=== PATIENT | female | born 1985 | race Caucasian/White ===

== ENCOUNTER 2019-04-11 05:39 | Outpatient (CLI) | payer OTHER ==
[~2019-04-11] VITALS: Ht 160 cm; Wt 50.5 kg
[~2019-04-11 05:39] MED LIST: CEPH-38 PO; HYDR-91 PO; IBP800T PO; PREN1TAB39 PO
[2019-04-11] MEDS ORDERED: FLUO40CA12 PO (09:45)
[2019-04-13] MEDS ORDERED: IBUP-1780 PO (12:41)
== END 2019-04-11 09:53 | disposition home or self-care (01) ==
LOC: PREOP 05:39
PROVIDERS: ATTEND Obstetrics & Gynecology
DX: Z01.818 Encounter for other preprocedural examination (principal)

== ENCOUNTER → 2020-07-25 | Outpatient (CLI) | payer MEDICAID ==
[~2020-07-25] MED LIST changes: +FLUO40CA12 PO; +IBUP-1780 PO
== END ==
LOC: LABNPT 12:42
PROVIDERS: ATTEND Obstetrics & Gynecology
DX: O14.93 Unspecified pre-eclampsia, third trimester (principal)
CPT/HCPCS: 82570; 84156

== ENCOUNTER 2020-08-22 11:19 | Inpatient (IN) | payer BC, MEDICAID ==
[~2020-08-22] VITALS: Ht 160 cm; Wt 65.0 kg
[2020-08-22] VITALS (42 sets, daily range): BP systolic 87–145; BP diastolic 55–86
[2020-08-22] MEDS ORDERED: OXYTOCIN PRE-MIX DRIP 500 ML IV SCH ×2 (12:00→15:15)
[2020-08-22] MEDS ORDERED: AMPICILLIN FOR IV USE 2,000 MG in WATER (STERILE) FOR INJECTION 14.8 ML IV ONE (12:00)
[2020-08-22] MEDS: D5 LR IV SOLUTION 1,000 ML IV SCH ×2 (12:15→19:13)
--- NOTE | 2020-08-22 12:21 | History & Physical ---
History and Physical Date Seen by Provider: August 22, 2020 Time Seen by Provider: 12:20 This patient is a 35-year-old 3 para 2 white female currently at 37-6/7 weeks gestation. She presented with complaint of rupture membranes about 1/2- hour before presentation at 11 AM. She denies bleeding. She reports clear fluid. Her history is significant for rapid labors and a GBS positive culture after 35 weeks gestation with this . Allergies are to omeprazole Medications are vitamins Medical social and surgical history is all per the antepartum record HEENT exam is normal Neck is supple no lymphadenopathy no thyromegaly Abdomen is gravid soft nontender nondistended Extremities show no clubbing cyanosis. There is no Homans' sign. Pelvic exam per the labor delivery nurse showed the cervix to 2-1/2 cm dilated 50% effaced gross rupture membranes vertex presentation Assessment and plan at 37+ week gestation with PROM. Patient will be started on prophylactic ampicillin and we anticipate vaginal delivery 37 weeks with PROM Allergies and Home Medications Allergies Coded Allergies: omeprazole (Unverified Adverse Reaction, Mild, Nausea and vomitting, 03/17/07) Home Medications Fluoxetine HCl Unknown Strength Capsule, 1 TAB PO DAILY, (Reported) Ibuprofen 800 Mg Tablet, 800 MG PO Q6H PRN for PAIN Prescribed by: CARSON PETERS on 04/13/19 1241 Patient Home Medication List Home Medication List Reviewed: Yes CARSON LAWSON MD August 22, 2020 12:21
[2020-08-22 12:29] LABS: BASOPHILS % (AUTO) 0 % (0-10); EOSINOPHILS # (AUTO) 0.1 10^3/uL (0.0-0.3); EOSINOPHILS % (AUTO) 1 % (0-10); HEMATOCRIT 34 % (35-52); HEMOGLOBIN 10.9 g/dL (11.5-16.0); LYMPHOCYTES # (AUTO) 1.7 10^3/uL (1.0-4.0); LYMPHOCYTES % (AUTO) 13 % (12-44); MEAN CORPUSCULAR HEMOGLOBIN 27 pg (25-34); MEAN CORPUSCULAR HGB CONC 32 g/dL (32-36); MEAN CORPUSCULAR VOLUME 85 fL (80-99); MEAN PLATELET VOLUME 11.2 fL (9.0-12.2); MONOCYTES # (AUTO) 0.6 10^3/uL (0.0-1.0); MONOCYTES % (AUTO) 5 % (0-12); NEUTROPHILS # (AUTO) 10.8 10^3/uL (1.8-7.8); NEUTROPHILS % (AUTO) 81 % (42-75); PLATELET COUNT 320 10^3/uL (130-400); WHITE BLOOD COUNT 13.4 10^3/uL (4.3-11.0)
[2020-08-22] MEDS ORDERED: fentaNYL INJ 100 MCG/2 ML AMP ONE (13:30)
[2020-08-22] MEDS ORDERED: BUPIVACAINE 0.25% 30 ML (SENSORCAINE) VIAL ONE (13:30)
[2020-08-22] MEDS ORDERED: fentaNYL 2 mcg/ml BUPIVA 0.125 100 ML ONE (13:32)
[2020-08-22] MEDS: EPIDURAL (fentaNYL 2 MCG/ML BUPIVA 0.125%)100 ML BAG EPI PRN (14:00)
[2020-08-22] MEDS ORDERED: NALOXONE 0.4 MG/ML 1 ML (NARCAN) VIAL IV PRN (14:15)
[2020-08-22] MEDS ORDERED: diphenhydrAMINE 50 MG/ML INJ (BENADRYL) IV PRN (14:15)
[2020-08-22] MEDS ORDERED: LACTATED RINGERS 1,000 ML IV SCH (14:15)
[2020-08-22] MEDS ORDERED: ONDANSETRON 4 MG/2 ML (SDV) Z0FRAN IV PRN (14:15)
[2020-08-22] MEDS: AMPICILLIN FOR IV USE 1,000 MG in WATER (STERILE) FOR INJECTION 7.4 ML IV SCH ×2 (15:57→20:05)
[2020-08-23] VITALS (24 sets, daily range): BP systolic 113–146; BP diastolic 57–81
[2020-08-23] MEDS: EPIDURAL (fentaNYL 2 MCG/ML BUPIVA 0.125%)100 ML BAG EPI PRN
[2020-08-23] MEDS: AMPICILLIN FOR IV USE 1,000 MG in WATER (STERILE) FOR INJECTION 7.4 ML IV SCH (00:02)
[2020-08-23] MEDS: D5 LR IV SOLUTION 1,000 ML IV SCH (02:23)
[2020-08-23] MEDS: KETOROLAC 30 MG/ML VIAL IVP SCH ×2 (04:08→19:51)
--- NOTE | 2020-08-23 04:10 | OPERATIVE REPORT ---
DATE OF SERVICE: 08/23/2020 DELIVERY NOTE The patient delivered by term spontaneous vaginal delivery, a viable female infant with Apgars of 7 and 9 at 1 and 5 minutes respectively, weight of 6 pounds 6 ounces, time of 0242 and a cord blood pH is pending. The was delivered over midline episiotomy under epidural analgesia. The was bulb suctioned on delivery of the head and again on completion of delivery. The umbilical cord when pulseless was doubly clamped, the father cut the cord, the baby was passed to mom's abdomen. The episiotomy was performed with the baby pushed down onto the perineal body and mom unable to expel the baby through the perineal body. She requested episiotomy, which was performed, and the delivery was accomplished fairly promptly. The infant was bulb suctioned on delivery of the head again on completion of delivery. After the father cut the cord, the baby was passed to mom's abdomen. Cord bloods were obtained. The placenta delivered spontaneously Oliveira. It was normal with a 3-vessel cord. The cervix, vagina, rectum, and perineum were examined and found intact, except for the midline episiotomy, which was repaired with a single suture of 3-0 Vicryl in the usual manner without difficulty to good hemostasis. Sponge and needle counts were correct on completion of delivery and the repair. Blood loss was around 300 mL. The patient tolerated the delivery and the repair well and remained in the LDR for recovery. The baby remained with the mom. Job ID: [id number] DocumentID: [id number] Dictated Date: 08/23/2020 03:01:06 Commercial Property Manager Date: 08/23/2020 04:09:40 Dictated By: CARSON LAWSON MD
[2020-08-23] MEDS ORDERED: OXYTOCIN PRE-MIX DRIP 500 ML IV SCH (04:15)
[2020-08-23] MEDS ORDERED: fentaNYL INJ 100 MCG/2 ML AMP IVP PRN (04:15)
[2020-08-23] MEDS ORDERED: TETANUS,DIPTH,PERTUSS P/F (BOOSTRIX) 0.5 ML VIAL IM ONE (04:15)
[2020-08-23] MEDS ORDERED: MEASLES,MUMPS,RUBELLA 1 EA INJ SC ONE (04:15)
[2020-08-23] MEDS ORDERED: ONDANSETRON 4 MG/2 ML (SDV) Z0FRAN IVP PRN (04:15)
[2020-08-23] MEDS: BENZOCAINE/MENTHOL (DERMOPLAST) 56 ML CAN TP PRN (05:14)
[2020-08-23] MEDS: IBUPROFEN 800 MG (MOTRIN) TAB PO SCH ×3 (10:20→22:34)
[2020-08-23] MEDS: DOCUSATE SODIUM 100 MG (COLACE) CAP PO SCH ×2 (10:21→20:48)
--- NOTE | 2020-08-23 12:29 | Progress Note ---
Standard Progress Note Progress Notes/Assess & Plan Date Seen by a Provider: August 23, 2020 Time Seen by a Provider: 12:28 Progress/Assessment & Plan This patient is without complaint. She is ambulating, voiding, tolerating oral intake well and has good pain control. Vital Signs 08/23/20 10:19 Temp 36.1 Pulse 81 Resp 18 B/P (MAP) 119/69 (86) Pulse Ox 98 O2 Delivery Room Air Vital signs are stable. Patient is afebrile. Fundus is firm below the umbilicus and nontender. Extremities show no clubbing or cyanosis. There is no Homans' sign. Assessment and plan Status post term spontaneous vaginal delivery in the early hours of this mo rning. Patient is doing well and will have routine convalescent care CARSON LAWSON MD August 23, 2020 12:29
[2020-08-23] MEDS ORDERED: IBUP-1780 PO (12:31)
[2020-08-23] MEDS ORDERED: OXYC1TAB87 PO (12:31)
[2020-08-23] MEDS ORDERED: DCS100C PO (12:31)
--- NOTE | 2020-08-23 12:31 | Discharge Inst-Surgical ---
Discharge Inst-Surgical Depart Medication/Instructions New, Converted or Re-Newed RX: RX on Chart Consults/Follow Up Patient Instructions: As directed Orders & Referrals Follow Up Appt: Call to make follow up appt. for patient in 4 weeks. Activity Per routine post vaginal delivery instructions. Please call in RX to patient pharmacy. Diet as tolerated Patient may shower or tub bathe as desired. Activity Activity as Tolerated: No Diet Discharge Diet: No Restrictions CARSON LAWSON MD August 23, 2020 12:31
--- NOTE | 2020-08-23 13:13 | Anesthesia-Regional Post-Op ---
Regional Patient Condition Mental Status: Alert, Oriented x3 Circulation: Same as Pre-Op Headache: Absent Sensation: Full Recovery Motor Block: Absent Post Op Complications Complications None Follow Up Care/Instructions Patient Instructions None needed. Anesthesia/Patient Condition Patient is doing well, no complaints, stable vital signs, no apparent adverse anesthesia problems. No complications reported per nursing. NICK GONSALVES CRNA August 23, 2020 13:13
[2020-08-23] MEDS: oxyCODONE/APAP 10/325MG (PERCOCET 10) TABLET PO PRN ×2 (17:18→20:48)
[2020-08-24 02:13] VITALS: BP 98/58
[2020-08-24] MEDS: IBUPROFEN 800 MG (MOTRIN) TAB PO SCH ×3 (02:13→15:43)
[2020-08-24] MEDS: oxyCODONE/APAP 10/325MG (PERCOCET 10) TABLET PO PRN (05:14)
[2020-08-24 09:24] VITALS: BP 108/69
[2020-08-24] MEDS: DOCUSATE SODIUM 100 MG (COLACE) CAP PO SCH (09:25)
[2020-08-24] MEDS: BENZOCAINE/MENTHOL (DERMOPLAST) 56 ML CAN TP PRN (12:30)
[2020-08-24 15:45] VITALS: BP 114/63
== END 2020-08-24 18:00 | disposition home or self-care (01) | DRG 807 ==
LOC: WSo 11:19 → LDRP 11:21 → WSo 12:00 → LDRP 08-23 05:20
PROVIDERS: ADMIT Obstetrics & Gynecology; ATTEND Obstetrics & Gynecology
PROC: 10E0XZZ Delivery of Products of Conception, External Approach (ICD-10-PCS; principal; 2020-08-23)
PROC: 0W8NXZZ Division of Female Perineum, External Approach (ICD-10-PCS; 2020-08-23)
DX: O42.92 Full-term premature rupture of membranes, unspecified as to length of time between rupture and onset of labor (principal); Z37.0 Single live birth; Z3A.37 37 weeks gestation of pregnancy; O99.824 Streptococcus B carrier state complicating childbirth
CPT/HCPCS: 36415; 85025

== ENCOUNTER 2020-09-16 13:38 | Emergency (ER) | payer BC, MEDICAID ==
[~2020-09-16] VITALS: Ht 160 cm; Wt 57.0 kg
[~2020-09-16 13:38] MED LIST changes: +DCS100C PO; +OXYC1TAB87 PO
[2020-09-16] MEDS ORDERED: LACTATED RINGERS 1,000 ML IV ONE (14:15)
[2020-09-16 14:20] LABS: BASOPHILS # (AUTO) 0.1 10^3/uL (0.0-0.1); BASOPHILS % (AUTO) 1 % (0-10); EOSINOPHILS # (AUTO) 0.2 10^3/uL (0.0-0.3); EOSINOPHILS % (AUTO) 3 % (0-10); HEMATOCRIT 30 % (35-52); HEMOGLOBIN 9.2 g/dL (11.5-16.0); LYMPHOCYTES # (AUTO) 3.3 10^3/uL (1.0-4.0); LYMPHOCYTES % (AUTO) 46 % (12-44); MEAN CORPUSCULAR HEMOGLOBIN 26 pg (25-34); MEAN CORPUSCULAR HGB CONC 31 g/dL (32-36); MEAN CORPUSCULAR VOLUME 85 fL (80-99); MEAN PLATELET VOLUME 9.3 fL (9.0-12.2); MONOCYTES # (AUTO) 0.5 10^3/uL (0.0-1.0); MONOCYTES % (AUTO) 7 % (0-12); NEUTROPHILS # (AUTO) 3.1 10^3/uL (1.8-7.8); NEUTROPHILS % (AUTO) 43 % (42-75); PLATELET COUNT 477 10^3/uL (130-400); WHITE BLOOD COUNT 7.1 10^3/uL (4.3-11.0)
[2020-09-16 14:29] LABS: ALBUMIN 4.2 GM/DL (3.2-4.5); CHLORIDE 99 MMOL/L (98-107); POTASSIUM 2.9 MMOL/L (3.6-5.0); SODIUM 137 MMOL/L (135-145)
[2020-09-16 14:31] LABS: GLUCOSE 105 MG/DL (70-105)
[2020-09-16 14:32] LABS: TOTAL PROTEIN 7.6 GM/DL (6.4-8.2)
[2020-09-16 14:33] LABS: BILIRUBIN,TOTAL 0.3 MG/DL (0.1-1.0); CARBON DIOXIDE 23 MMOL/L (21-32)
[2020-09-16 14:35] LABS: ALKALINE PHOSPHATASE 54 U/L (40-136); CREATININE SERUM 1.02 MG/DL (0.60-1.30); GFR ESTIMATED > 60
[2020-09-16 14:36] LABS: BUN/CREATININE RATIO 7
[2020-09-16 14:38] LABS: ALANINE AMINOTRANSFERASE 13 U/L (0-55)
--- NOTE | 2020-09-16 15:04 | ED GU-Female ---
General Chief Complaint: Female Reproductive Stated Complaint: VAGINAL 3 WKS AGO/HEAVY BLEEDING Nursing Triage Note: PT PRESENTS TO ED VIA POV FROM HOME WITH COMPLAINTS OF VAGINAL BLEEDING STARTING 09/15 AND INCREASING THIS AM. PT REPORTS SHE IS SOAKING THROUGH MULTIPLE PADS AT A TIME AND REPORTS BLOOD CLOTS. PT REPORTS A NORMAL VAGINAL DELIVERY ON 08/23. Nursing Sepsis Screen: No Definite Risk Source: patient, spouse Exam Limitations: no limitations History of Present Illness Date Seen by Provider: Sep 16, 2020 Time Seen by Provider: 14:00 Initial Comments Patient to the ER by private conveyance with chief complaint that she is 3 weeks with her daughter. She is a G6, P4 with copious vaginal bleeding starting since last night. She is passed large blood clots greater than the size of a chicken egg. She is having dizziness near syncope and lightheadedness whenever she walks. Nursing reports that her heart rate was 140 on arrival but improved as they laid her down. She denies a history of bleeding or easy bruising or bleeding with her gums on brushing or dental work. No history of family bleeding disorders. She had preeclampsia with her previous . Last vaginal intercourse was 4 weeks ago. Allergies and Home Medications Allergies Coded Allergies: Penicillins (Verified Adverse Reaction, Unknown, Nausea, 09/16/20) Home Medications Docusate Sodium 100 Mg Capsule, 100 MG PO BID Prescribed by: CARSON PETERS on 08/23/20 1231 Ibuprofen 800 Mg Tablet, 800 MG PO Q6H PRN for PAIN Prescribed by: CARSON PETERS on 08/23/20 1231 Oxycodone HCl/Acetaminophen 1 Each Tablet, 1 TAB PO Q4H Prescribed by: CARSON PETERS on 08/23/20 1231 Patient Home Medication List Home Medication List Reviewed: Yes Review of Systems Review of Systems Constitutional: see HPI; No chills, No diaphoresis; dizziness, weakness EENTM: No ear discharge, No ear pain, No blurred vision Respiratory: No cough, No short of breath Cardiovascular: No chest pain, No palpitations; syncope (near) Gastrointestinal: No abdominal pain, No constipation, No nausea Genitourinary: denies burning, denies discharge Musculoskeletal: No back pain, No joint pain All Other Systemes Reviewed Negative Unless Noted: Yes Past Poqunma-Zqarle-Pdvskc Hx Patient Social History Alcohol Use: Denies Use Smoking Status: Never a Smoker Type Used: Cigarettes 2nd Hand Smoke Exposure: Yes Recent Infectious Disease Expo: No Recent Hopitalizations: No Seasonal Allergies Seasonal Allergies: No Past Medical History Surgeries: Yes (cyst x2 removed under chin, lymph node removed) Adenoidectomy, Tonsillectomy Respiratory: No Cardiac: No Neurological: No Reproductive Disorders: No Genitourinary: No Gastrointestinal: No Musculoskeletal: No Endocrine: No HEENT: No Cancer: No Psychosocial: Yes Anxiety, Depression Integumentary: No Blood Disorders: No Physical Exam Vital Signs Vital Signs - First Documented 09/16/20 13:55 Temp 36.6 Pulse 140 Resp 20 B/P (MAP) 132/89 (103) Pulse Ox 99 Capillary Refill : Less Than 3 Seconds Height, Weight, BMI Height: 5'3.00" Weight: 120lbs. 0.0oz. [id number]; 22.00 BMI Method: General Appearance: WD/WN, no apparent distress HEENT: PERRL/EOMI, pharynx normal Neck: full range of motion, normal inspection Cardiovascular: normal peripheral pulses, regular rate, rhythm Respiratory: lungs clear, normal breath sounds, no respiratory distress, no accessory muscle use Gastrointestinal: normal bowel sounds, non tender, soft Pelvic: normal external exam, vaginal bleeding (Blood clots in the vaginal vault. Cervical os is parous, open approximately three quarters of a centimeter with blood clot but no membranes seen. No active bleeding. No lacerations in the vagina.) Extremities: non-tender, normal inspection, no pedal edema Neurologic/Psychiatric: alert, normal mood/affect, oriented x 3 Skin: normal color, warm/dry Progress/Results/Core Measures Suspected Sepsis Recent Fever Within 48 Hours: No Infection Criteria Present: None New/Unexplained Altered Menta: No Sepsis Screen: No Definite Risk SIRS Temperature: Pulse: 140 Respiratory Rate: 20 Laboratory Tests 09/16/20 14:12: White Blood Count 7.1 Blood Pressure 132 /89 Mean: 103 Laboratory Tests 09/16/20 14:12: Creatinine 1.02, Platelet Count 477H, Total Bilirubin 0.3 09/16/20 15:12: INR Comment 1.1 Results/Orders Lab Results Laboratory Tests Test 09/16/20 14:12 09/16/20 15:12 09/16/20 15:30 Range/Units White Blood Count 7.1 4.3-11.0 10^3/uL Red Blood Count 3.54 L 3.80-5.11 10^6/uL Hemoglobin 9.2 L 11.5-16.0 g/dL Hematocrit 30 L 35-52 % Mean Corpuscular Volume 85 80-99 fL Mean Corpuscular Hemoglobin 26 25-34 pg Mean Corpuscular Hemoglobin Concent 31 L 32-36 g/dL Red Cell Distribution Width 13.2 10.0-14.5 % Platelet Count 477 H 130-400 10^3/uL Mean Platelet Volume 9.3 9.0-12.2 fL Immature Granulocyte % (Auto) 0 % Neutrophils (%) (Auto) 43 42-75 % Lymphocytes (%) (Auto) 46 H 12-44 % Monocytes (%) (Auto) 7 0-12 % Eosinophils (%) (Auto) 3 0-10 % Basophils (%) (Auto) 1 0-10 % Neutrophils # (Auto) 3.1 1.8-7.8 10^3/uL Lymphocytes # (Auto) 3.3 1.0-4.0 10^3/uL Monocytes # (Auto) 0.5 0.0-1.0 10^3/uL Eosinophils # (Auto) 0.2 0.0-0.3 10^3/uL Basophils # (Auto) 0.1 0.0-0.1 10^3/uL Immature Granulocyte # (Auto) 0.0 0.0-0.1 10^3/uL Sodium Level 137 135-145 MMOL/L Potassium Level 2.9 L 3.6-5.0 MMOL/L Chloride Level 99 98-107 MMOL/L Carbon Dioxide Level 23 21-32 MMOL/L Anion Gap 15 H 5-14 MMOL/L Blood Urea Nitrogen 7 7-18 MG/DL Creatinine 1.02 0.60-1.30 MG/DL Estimat Glomerular Filtration Rate > 60 BUN/Creatinine Ratio 7 Glucose Level 105 70-105 MG/DL Calcium Level 9.0 8.5-10.1 MG/DL Corrected Calcium 8.8 8.5-10.1 MG/DL Total Bilirubin 0.3 0.1-1.0 MG/DL Aspartate Amino Transf (AST/SGOT) 18 5-34 U/L Alanine Aminotransferase (ALT/SGPT) 13 0-55 U/L Alkaline Phosphatase 54 40-136 U/L Total Protein 7.6 6.4-8.2 GM/DL Albumin 4.2 3.2-4.5 GM/DL Prothrombin Time 14.9 H 12.2-14.7 SEC INR Comment 1.1 0.8-1.4 Activated Partial Thromboplast Time 36 H 24-35 SEC Fibrinogen 299 221-496 MG/DL Urine Color RED H Urine Clarity CLOUDY Urine pH 7.0 5-9 Urine Specific Kelley 1.010 L 1.016-1.022 Urine Protein 3+ H NEGATIVE Urine Glucose (UA) NEGATIVE NEGATIVE Urine Ketones NEGATIVE NEGATIVE Urine Nitrite NEGATIVE NEGATIVE Urine Bilirubin NEGATIVE NEGATIVE Urine Urobilinogen 0.2 < = 1.0 MG/DL Urine Leukocyte Esterase NEGATIVE NEGATIVE Urine RBC (Auto) 3+ H NEGATIVE Urine RBC >100 H /HPF Urine WBC RARE /HPF Urine Squamous Epithelial Cells RARE /HPF Urine Crystals NONE /LPF Urine Bacteria NEGATIVE /HPF Urine Casts NONE /LPF Urine Mucus NEGATIVE /LPF Urine Culture Indicated NO Micro Results Microbiology 09/16/20 Wet Prep - Final, Complete My Orders Orders - FRANCOISE JAVIER Cbc With Automated Diff (09/16/20 14:14) Comprehensive Metabolic Panel (09/16/20 14:14) Type And Screen (09/16/20 14:14) Ua Culture If Indicated (09/16/20 14:14) Ed Iv/Invasive Line Start (09/16/20 14:14) Lactated Ringers (Lr 1000 Ml Iv Solution (09/16/20 14:15) Wet Prep (09/16/20 14:14) Potassium Cl 10meq/50ml Ivpb (Kcl 10 Meq (09/16/20 15:15) Protime With Inr (09/16/20 15:04) Partial Thromboplastin Time (09/16/20 15:04) Fibrinogen (09/16/20 15:04) Methylergonovine Tablet (Methergine Tabl (09/16/20 15:15) Azithromycin Tablet (Zithromax Tablet) (09/16/20 15:15) Chlamydia Trachomatis Urine (09/16/20 17:11) Neis Apolinar Dna Urine Test (09/16/20 17:11) Methylergonovine Tablet (Methergine Tabl (09/16/20 17:15) Medications Given in ED Current Medications Medications Dose Ordered Sig/Mirna Route Start Time Stop Time Status Last Admin Dose Admin Azithromycin 1,000 mg ONCE ONCE PO 09/16/20 15:15 09/16/20 15:16 DC 09/16/20 15:23 1,000 MG Lactated Ringer's 1,000 ml @ 0 mls/hr Q0M ONCE IV 09/16/20 14:15 09/16/20 14:16 DC 09/16/20 14:28 0 MLS/HR Methylergonovine Maleate 0.2 mg ONCE ONCE PO 09/16/20 15:15 09/16/20 15:16 DC 09/16/20 15:23 0.2 MG Potassium Chloride 50 ml @ 50 mls/hr ONCE ONCE IV 09/16/20 15:15 09/16/20 16:14 DC 09/16/20 15:23 50 MLS/HR Vital Signs/I&O 09/16/20 13:55 Temp 36.6 Pulse 140 Resp 20 B/P (MAP) 132/89 (103) Pulse Ox 99 Capillary Refill : Less Than 3 Seconds Blood Pressure Mean: 103 Progress Note #1: Time: 15:12 Progress Note Wet prep was obtained. We discussed the case with Dr. Garza who recommends a gram of azithromycin and Methergine now and again in 1 hour if necessary. He remembers the case and does not member having any difficulty with retained POC. Progress Note #2: Time: 17:13 Progress Note Patient had a significant improvement in her ability to walk down the avery without being tachycardic or lightheaded. She says just a little mild amount of lightheadedness. We did offer her another bag of fluids and something to eat while she waited which she declined stating she just wants to go home. We did offer her a second dose of Methergine as she is still having a small amount of vaginal bleeding after about 2 hours after her first dose. She has accepted that. Encourage her to follow-up with Dr. Garza's office tomorrow morning by phone. Return precautions were given. She has a good blood pressure and vital signs and feels much better. Departure Impression Primary Impression: hemorrhage Qualified Codes: O72.1 - Other immediate hemorrhage Disposition: 01 HOME, SELF-CARE Condition: Stable Departure-Patient Inst. Decision time for Depature: 17:15 Referrals: CARSON GARZA MD (PCP) Primary Care Physician RICKY SANCHEZ DO (Family) Primary Care Physician Patient Instructions: Hemorrhage Add. Discharge Instructions: Drink plenty of fluids. Nothing in the vagina until cleared by your extruder operator horizontal. Call Dr. Garza's office on Thursday and request further instructions at that time. Return to the ER promptly if you are having chest pain, shortness of air, passing out or other worrisome symptoms such as heavy bleeding with blood clots larger than the chickens egg. Tylenol as necessary for pain. Avoid NSAIDs such as Aleve or ibuprofen as this may contribute to increased bleeding. All discharge instructions reviewed with patient and/or family. Voiced understanding. Copy Copies To 1: CARSON GARZA MD, TITUS J Sep 16, 2020 15:03
[2020-09-16] MEDS ORDERED: AZITHROMYCIN 250 MG TAB (ZITHROMAX) PO ONE (15:15)
[2020-09-16] MEDS ORDERED: METHYLERGONOVINE 0.2 MG (MEHTERGINE) TAB PO ONE ×2 (15:15→17:15)
[2020-09-16] MEDS ORDERED: POTASSIUM CL 10MEQ/50ML IVPB 50 ML IV ONE (15:15)
[2020-09-16 15:29] LABS: INR 1.1 (0.8-1.4); PROTHROMBIN TIME PATIENT 14.9 SEC (12.2-14.7)
[2020-09-16 15:44] LABS: BILIRUBIN,URINE NEGATIVE (NEGATIVE); CLARITY,URINE CLOUDY; COLOR,URINE RED; GLUCOSE, URINE (UA) NEGATIVE (NEGATIVE); KETONES,URINE NEGATIVE (NEGATIVE); LEUKOCYTE ESTERASE ,URINE NEGATIVE (NEGATIVE); NITRITE,URINE NEGATIVE (NEGATIVE); PROTEIN,URINE 3+ (NEGATIVE)
[2020-09-16 15:49] LABS: BACTERIA,URINE NEGATIVE /HPF; RBC,URINE >100 /HPF; SQUAMOUS EPITHELIAL CELL,UR RARE /HPF; WBC,URINE RARE /HPF
[2020-09-16 17:25] VITALS: BP 126/75
== END 2020-09-16 17:25 | disposition home or self-care (01) ==
LOC: EDUNIT# 13:38 → ER 13:39
DX: O72.1 Other immediate postpartum hemorrhage (principal); Z77.22 Contact with and (suspected) exposure to environmental tobacco smoke (acute) (chronic)
CPT/HCPCS: 36415; 80053; 81000; 85025; 85384; 85610; 85730; 86850; 86900; 86901; 87210; 87491; 87591; 96360; 96361

== ENCOUNTER 2022-09-06 12:13 | Emergency (ER) | payer MEDICAID ==
[~2022-09-06] VITALS: Ht 160 cm; Wt 52.0 kg
[~2022-09-06 12:13] MED LIST changes: -DCS100C PO; +DOCU-239 PO
[2022-09-06 12:39] LABS: BILIRUBIN,URINE NEGATIVE (NEGATIVE); CLARITY,URINE CLEAR; COLOR,URINE YELLOW; GLUCOSE, URINE (UA) NEGATIVE (NEGATIVE); KETONES,URINE NEGATIVE (NEGATIVE); LEUKOCYTE ESTERASE ,URINE NEGATIVE (NEGATIVE); NITRITE,URINE NEGATIVE (NEGATIVE); PH,URINE 6.5 (5-9); PROTEIN,URINE 1+ (NEGATIVE)
[2022-09-06 12:51] LABS: AMORPHOUS SEDIMENT,UR FEW AMOR URATES /LPF; BACTERIA,URINE TRACE /HPF; RBC,URINE 0-2 /HPF; WBC,URINE 0-2 /HPF
[2022-09-06 12:58] LABS: BASOPHILS % (AUTO) 0 % (0-10); EOSINOPHILS # (AUTO) 0.1 10^3/uL (0.0-0.3); EOSINOPHILS % (AUTO) 1 % (0-10); HEMATOCRIT 32 % (35-52); HEMOGLOBIN 10.2 g/dL (11.5-16.0); LYMPHOCYTES # (AUTO) 1.4 10^3/uL (1.0-4.0); LYMPHOCYTES % (AUTO) 15 % (12-44); MEAN CORPUSCULAR HEMOGLOBIN 24 pg (25-34); MEAN CORPUSCULAR HGB CONC 32 g/dL (32-36); MEAN CORPUSCULAR VOLUME 76 fL (80-99); MEAN PLATELET VOLUME 9.1 fL (9.0-12.2); MONOCYTES # (AUTO) 0.6 10^3/uL (0.0-1.0); MONOCYTES % (AUTO) 6 % (0-12); NEUTROPHILS # (AUTO) 7.5 10^3/uL (1.8-7.8); NEUTROPHILS % (AUTO) 78 % (42-75); PLATELET COUNT 359 10^3/uL (130-400); WHITE BLOOD COUNT 9.6 10^3/uL (4.3-11.0)
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
--- NOTE | 2022-09-06 14:26 | Diagnostic Imaging Report ---
INDICATION: Vaginal bleeding. TECHNIQUE: Multiple Real-time grayscale images were obtained of the pelvis transabdominally and transvaginally. CORRELATION STUDY: None FINDINGS: UTERUS: 11.1 x 10.2 x 10.9 cm. Intrauterine fluid collection compatible with gestational sac is present. [place]-rump length measures 14 weeks 1 day for an estimated date of delivery of 03/05/2023. cardiac activity at 146 BPM. Posteriorly positioned placenta is generally unremarkable. RIGHT OVARY: Not visualized. LEFT OVARY: Not visualized. Nonvisualization of the ovaries may be owing to their position and/or obscuration by overlying bowel gas. No definitive abnormal adnexal mass. No significant pelvic fluid. IMPRESSION: Single viable intrauterine . Sonographic estimated age 14 weeks 1 day, with an estimated date of delivery 03/05/2023. Dictated by: Dictated on workstation # [id number]
[2022-09-06 14:52] VITALS: BP 116/85
[2022-09-08] MEDS ORDERED: AZIT500T9 PO (16:48)
== END 2022-09-06 14:52 | disposition home or self-care (01) ==
LOC: EDUNIT# 12:13 → ER 12:17
DX: O20.9 Hemorrhage in early pregnancy, unspecified (principal); O99.112 Other diseases of the blood and blood-forming organs and certain disorders involving the immune mechanism complicating pregnancy, second trimester; R71.0 Precipitous drop in hematocrit; Z3A.14 14 weeks gestation of pregnancy
CPT/HCPCS: 36415; 76801; 76817; 81000; 84702; 84703; 85025; 87210; 87491; 87591